=== PATIENT | male | born 1960 | race Caucasian/White ===

== ENCOUNTER 2021-01-24 11:59 | Outpatient (REF) | payer OTHER, SELFPAY | END 2021-01-24 12:00 | disposition home or self-care (01) | LOC: HO.BBR 11:59 | PROVIDERS: Visit Provider Internal Medicine Hematology & Oncology | DX: D45 Polycythemia vera (principal) | CPT/HCPCS: 85014; 85018; 99195 ==

== ENCOUNTER 2021-01-31 12:42 | Outpatient (REF) | payer OTHER, SELFPAY | END 2021-01-31 12:43 | disposition home or self-care (01) | LOC: HO.BBR 12:42 | PROVIDERS: Visit Provider Internal Medicine Hematology & Oncology | DX: D45 Polycythemia vera (principal) | CPT/HCPCS: 85018; 99195 ==

== ENCOUNTER 2021-02-07 14:49 | Outpatient (REF) | payer OTHER, SELFPAY | END 2021-02-07 14:50 | disposition home or self-care (01) | LOC: HO.BBR 14:49 | PROVIDERS: Visit Provider Internal Medicine Hematology & Oncology | DX: D45 Polycythemia vera (principal) | CPT/HCPCS: 85014; 85018; 99195 ==

== ENCOUNTER 2021-02-14 12:55 | Outpatient (REF) | payer OTHER, SELFPAY | END 2021-02-14 12:56 | disposition home or self-care (01) | LOC: HO.BBR 12:55 | PROVIDERS: Visit Provider Internal Medicine Hematology & Oncology | DX: D45 Polycythemia vera (principal) | CPT/HCPCS: 85014; 85018; 99195 ==

== ENCOUNTER 2021-05-02 11:00 | Outpatient (REF) | payer OTHER, SELFPAY | END 2021-05-02 11:01 | disposition home or self-care (01) | LOC: HO.BBR 11:00 | PROVIDERS: Visit Provider Internal Medicine Hematology & Oncology | DX: D45 Polycythemia vera (principal) | CPT/HCPCS: 85014; 85018; 99195 ==

== ENCOUNTER 2021-05-09 08:07 | Outpatient (REF) | payer OTHER, SELFPAY | END 2021-05-09 08:08 | disposition home or self-care (01) | LOC: HO.BBR 08:07 | PROVIDERS: Visit Provider Internal Medicine Hematology & Oncology | DX: D45 Polycythemia vera (principal) | CPT/HCPCS: 85014; 85018; 99195 ==

== ENCOUNTER 2021-05-16 09:55 | Outpatient (REF) | payer OTHER, SELFPAY | END 2021-05-16 09:56 | disposition home or self-care (01) | LOC: HO.BBR 09:55 | PROVIDERS: Visit Provider Internal Medicine Hematology & Oncology | DX: D45 Polycythemia vera (principal) | CPT/HCPCS: 85014; 85018; 99195 ==

== ENCOUNTER 2021-05-23 11:02 | Outpatient (REF) | payer OTHER, SELFPAY | END 2021-05-23 11:03 | disposition home or self-care (01) | LOC: HO.BBR 11:02 | PROVIDERS: Visit Provider Internal Medicine Hematology & Oncology | DX: D45 Polycythemia vera (principal) | CPT/HCPCS: 85018; 99195 ==

== ENCOUNTER 2021-05-30 10:06 | Outpatient (REF) | payer OTHER, SELFPAY | END 2021-05-30 10:07 | disposition home or self-care (01) | LOC: HO.BBR 10:06 | PROVIDERS: Visit Provider Internal Medicine Hematology & Oncology | DX: D45 Polycythemia vera (principal) | CPT/HCPCS: 85018; 99195 ==

== ENCOUNTER 2021-06-07 09:59 | Outpatient (REF) | payer OTHER, SELFPAY | END 2021-06-07 10:00 | disposition home or self-care (01) | LOC: HO.BBR 09:59 | PROVIDERS: Visit Provider Internal Medicine Hematology & Oncology | DX: D45 Polycythemia vera (principal) | CPT/HCPCS: 85018 ==

== ENCOUNTER 2021-12-20 15:05 | Outpatient (REF) | payer OTHER, SELFPAY | END 2021-12-20 15:06 | disposition home or self-care (01) | LOC: HO.BBR 15:05 | PROVIDERS: Visit Provider Internal Medicine Hematology & Oncology | DX: D45 Polycythemia vera (principal) | CPT/HCPCS: 85014; 85018; 99195 ==

== ENCOUNTER 2022-01-04 15:00 | Outpatient (REF) | payer OTHER, SELFPAY | END 2022-01-04 15:01 | disposition home or self-care (01) | LOC: HO.BBR 15:00 | PROVIDERS: Visit Provider Internal Medicine Hematology & Oncology | DX: D45 Polycythemia vera (principal) | CPT/HCPCS: 85014; 85018; 99195 ==

== ENCOUNTER 2022-01-18 15:09 | Outpatient (REF) | payer OTHER, SELFPAY | END 2022-01-18 15:10 | disposition home or self-care (01) | LOC: HO.BBR 15:09 | PROVIDERS: Visit Provider Internal Medicine Hematology & Oncology | DX: D45 Polycythemia vera (principal) | CPT/HCPCS: 85018; 99195 ==

== ENCOUNTER 2022-02-01 15:00 | Outpatient (REF) | payer OTHER, SELFPAY | END 2022-02-01 15:01 | disposition home or self-care (01) | LOC: HO.BBR 15:00 | PROVIDERS: Visit Provider Internal Medicine Hematology & Oncology | DX: D45 Polycythemia vera (principal) | CPT/HCPCS: 85018; 99195 ==

== ENCOUNTER 2022-03-09 14:47 | Outpatient (REF) | payer OTHER, SELFPAY | END 2022-03-09 14:48 | disposition home or self-care (01) | LOC: HO.BBR 14:47 | PROVIDERS: PCP Internal Medicine; Visit Provider Internal Medicine Hematology & Oncology | DX: D45 Polycythemia vera (principal) | CPT/HCPCS: 85018; 99195 ==

== ENCOUNTER 2022-04-04 09:02 | Outpatient (REF) | payer OTHER, SELFPAY | END 2022-04-04 09:03 | disposition home or self-care (01) | LOC: HO.BBR 09:02 | PROVIDERS: Visit Provider Internal Medicine Hematology & Oncology | DX: D45 Polycythemia vera (principal) | CPT/HCPCS: 85014; 85018; 99195 ==

== ENCOUNTER 2022-06-01 09:06 | Outpatient (REF) | payer OTHER, SELFPAY | END 2022-06-01 09:07 | disposition home or self-care (01) | LOC: HO.BBR 09:06 | PROVIDERS: Visit Provider Internal Medicine Hematology & Oncology | DX: D45 Polycythemia vera (principal) | CPT/HCPCS: 85014; 85018; 99195 ==

== ENCOUNTER 2022-06-29 08:00 | Outpatient (REF) | payer OTHER, SELFPAY | END 2022-06-29 08:01 | disposition home or self-care (01) | LOC: HO.BBR 08:00 | PROVIDERS: Visit Provider Internal Medicine Hematology & Oncology | DX: D45 Polycythemia vera (principal) | CPT/HCPCS: 85018; 99195 ==

== ENCOUNTER 2022-07-25 07:59 | Outpatient (REF) | payer OTHER, SELFPAY | END 2022-07-25 08:00 | disposition home or self-care (01) | LOC: HO.BBR 07:59 | PROVIDERS: Visit Provider Internal Medicine Hematology & Oncology | DX: D45 Polycythemia vera (principal) | CPT/HCPCS: 85018; 99195 ==

== ENCOUNTER 2022-08-22 07:59 | Outpatient (REF) | payer OTHER, SELFPAY | END 2022-08-22 08:00 | disposition home or self-care (01) | LOC: HO.BBR 07:59 | PROVIDERS: Visit Provider Internal Medicine Hematology & Oncology | DX: D45 Polycythemia vera (principal) | CPT/HCPCS: 85014; 85018; 99195 ==

== ENCOUNTER 2022-10-03 08:07 | Outpatient (REF) | payer OTHER, SELFPAY | END 2022-10-03 08:08 | disposition home or self-care (01) | LOC: HO.BBR 08:07 | PROVIDERS: Visit Provider Internal Medicine Hematology & Oncology | DX: E83.110 Hereditary hemochromatosis (principal) | CPT/HCPCS: 85014; 85018; 99195 ==

== ENCOUNTER 2022-11-14 09:58 | Outpatient (REF) | payer OTHER, SELFPAY | END 2022-11-14 09:59 | disposition home or self-care (01) | LOC: HO.BBR 09:58 | PROVIDERS: PCP Internal Medicine; Visit Provider Internal Medicine Hematology & Oncology | DX: D45 Polycythemia vera (principal) | CPT/HCPCS: 85014; 85018; 99195 ==

== ENCOUNTER 2022-12-28 09:59 | Outpatient (REF) | payer OTHER, SELFPAY | END 2022-12-28 10:00 | disposition home or self-care (01) | LOC: HO.BBR 09:59 | PROVIDERS: PCP Internal Medicine; Visit Provider Internal Medicine Hematology & Oncology | DX: D45 Polycythemia vera (principal) | CPT/HCPCS: 85018; 99195 ==

== ENCOUNTER 2023-02-08 09:56 | Outpatient (REF) | payer OTHER, SELFPAY | END 2023-02-08 09:57 | disposition home or self-care (01) | LOC: HO.BBR 09:56 | PROVIDERS: PCP Internal Medicine; Visit Provider Internal Medicine Hematology & Oncology | DX: D45 Polycythemia vera (principal) | CPT/HCPCS: 85018; 99195 ==

== ENCOUNTER 2023-03-22 09:06 | Outpatient (REF) | payer OTHER, SELFPAY | END 2023-03-22 09:07 | disposition home or self-care (01) | LOC: HO.BBR 09:06 | PROVIDERS: PCP Internal Medicine; Visit Provider Internal Medicine Hematology & Oncology | DX: D45 Polycythemia vera (principal) | CPT/HCPCS: 85014; 85018; 99195 ==

== ENCOUNTER 2023-05-03 09:55 | Outpatient (REF) | payer OTHER, SELFPAY | END 2023-05-03 09:56 | disposition home or self-care (01) | LOC: HO.BBR 09:55 | PROVIDERS: PCP Internal Medicine; Visit Provider Internal Medicine Hematology & Oncology | DX: D45 Polycythemia vera (principal) | CPT/HCPCS: 85014; 85018; 99195 ==

== ENCOUNTER 2023-06-19 10:04 | Outpatient (REF) | payer OTHER, SELFPAY | END 2023-06-19 10:05 | disposition home or self-care (01) | LOC: HO.BBR 10:04 | PROVIDERS: PCP Internal Medicine; Visit Provider Internal Medicine Hematology & Oncology | DX: D45 Polycythemia vera (principal) | CPT/HCPCS: 85018; 99195 ==

== ENCOUNTER 2025-02-26 12:53 | Outpatient (REF) | payer OTHER, SELFPAY ==
--- OUTSIDE RECORDS SUMMARY | 2025-02-26 12:56 | XMS_ITS | Clinical Summary ---
Author Organization [facility] Prior to 08/01/24 Address [address] [place] [address] Care Team Providers Care Cartridge Loader Name Role Phone Karen Bowie MD Primary Care Provider [phone] Allergies No known active allergies Medications Medication Sig Dispensed Refills Start Date End Date Status hydroxyurea (HYDREA) 500 MG capsule TAKE 1 CAPSULE (500 MG TOTAL) BY MOUTH DAILY 90 capsule 3 05/01/2023 Active apixaban (ELIQUIS) 5 MG TABS tablet Take 1 tablet (5 mg total) by mouth every 12 (twelve) hours. 0 Active amiodarone (PACERONE) 200 MG tablet Take 1 tablet (200 mg total) by mouth daily. 0 Active omeprazole (PriLOSEC) 40 MG capsule Take 1 capsule (40 mg total) by mouth daily. 0 Active Aspirin Low Dose 81 MG EC tablet TAKE 1 TABLET BY MOUTH EVERY DAY 90 tablet 3 09/23/2023 Active Active Problems Problem Noted Date Diagnosed Date Erythrocytosis 01/12/2021 Social History Tobacco Use Types Packs/Day Years Used Date Smoking Tobacco: Never Assessed Sex and Gender Information Value Date Recorded Sex Assigned at Not on file Gender Identity Not on file Sexual Orientation Not on file Job Start Date Occupation Industry Not on file Not on file Not on file Last Filed Vital Signs Vital Sign Reading Time Taken Comments Blood Pressure 155/65 11/08/2023 10:13 AM EDT Pulse 65 11/08/2023 10:13 AM EDT Temperature 36.7 C (98 F) 11/08/2023 10:13 AM EDT Respiratory Rate - - Oxygen Saturation 100% 11/08/2023 10:13 AM EDT Inhaled Oxygen Concentration - - Weight 86.2 kg (190 lb) 11/08/2023 10:13 AM EDT Height 174.2 cm (5' 8.6 ) 11/08/2023 10:13 AM ED T Body Mass Index 28.39 11/08/2023 10:13 AM EDT Plan of Treatment Health Maintenance Due Date Last Done Comments Hepatitis C Screening 1958 Depression Screening 1970 BMI Counseling 1976 Preventative Health Evaluation 1976 DTap / Tdap / Td (1 - Tdap) 1977 Colon Cancer Screening (Colonoscopy) 11/10/2003 Shingrix-Zoster Vaccine (1 o f 2) 2008 Fall Risk Assessment 11/10/2023 Pneumococcal Vaccine (1 of 1 - PCV) 11/10/2023 COVID-19 Vaccine (3 - 2024-2 6 season) 2024 08/16/2020, 07/26/2020 Influenza Vaccine (#1) 2024 RSV Adult > 60+ Yrs or (1 - 1-dose 75+ series) 2033 Hepatitis B Vaccines Aged Out No long er eligible based on patient's age to complete this topic RSV Ped < 20 months Aged Out No longe r eligible based on patient's age to complete this topic Care Teams Cartridge Loader Relationship Specialty Start Date End Date Karen Bowie MD [address] [place] [address] PCP - General Internal Medicine 08/16/23
--- OUTSIDE RECORDS SUMMARY | 2025-02-26 12:56 | XMS_ITS | Clinical Summary ---
Author Organization [facility] Address [address] [place] [address] Phone Care Team Providers Care Activities Officer Name Role Phone Karen Bowie MD Primary Care Provider [phone] Allergies Active Allergy Reactions Criticality Noted Date Comments Bee Venom Protein (Honey Bee) 09/22/2020 Other 01/17/2024 Bee stings only as a child denies any reaction as adult Medications omeprazole (PriLOSEC) [address] capsule TAKE 1 CAPSULE BY MOUTH DAILY FOR 360 DAYS. 90 capsule 3 05/15/19 25 Active atorvastatin (LIPITOR) 10 mg tablet TAKE 1 TABLET BY MOUTH EVERY DAY 90 tablet 05/15/19 25 Active Additional Information Patient not taking.Reported on 02/12/2025 omeprazole (PriLOSEC) [address] capsule Take 1 capsule (40 mg total) by mouth 1 (one) time each day. 90 capsule 2 05/15/19 25 Active hydroxyurea (HYDREA) 500 mg capsule Take 1 pill twice daily on Saturday, Saturday, and Saturday, take 1 pill daily on other 4 days 128 capsule 3 11/14/19 25 Active aspirin 81 mg EC tablet TAKE 1 TABLET BY MOUTH 1 TIME EACH DAY. 90 tablet 3 02/11/20 25 Active aspirin 81 mg EC tablet Take 1 tablet (81 mg total) by mouth 1 (one) time each day. 90 each 3 01/22/20 24 025 Discontinued Active Problems Problem Noted Date Diagnosed Date Polycythemia vera 02/07/2024 Gastroesophageal reflux disease without esophagi tis 01/17/2024 Erythrocytosis 01/12/2021 Encounters Date Type Department Care Team Description 02/12/2025 9:45 AM EST Office Visit [facility] Hematology Oncology [address] [place] [address] Ketan Traore MD Polycythemia vera ([facility]/HCC V24, [facility] V28) (Primary Dx) 02/09/2025 1:30 PM EST Lab Draw Station - [address] [address] Erythrocytosis (Primary Dx); Polycythemia vera (CMS/HCC V24, CMS/HCC V28) from Last 3 Months Social History Tobacco Use Types Packs/Day Years Used Date Smoking Tobacco: Never Passive Smoke Exposure: Never Smokeless Tobacco: Never Tobacco Cessation:Counseling Given: Not Answered Alcohol Use Standard Drinks/Week Comments Yes 0 (1 standard drink = 0.6 oz pur e alcohol) social Sex and Gender Information Value Date Recorded Sex Assigned at Not on file Legal Sex Male 9:09 PM EST Gender Identity Not on file Sexual Orientation Not on file Last Filed Vital Signs Vital Sign Reading Time Taken Comments Blood Pressure 164/79 02/12/2025 9:50 AM EST Pulse 67 02/12/2025 9:50 AM EST Temperature 36.4 C (97.5 F) 02/12/2025 9:50 AM EST Respiratory Rate 14 01/17/2024 1:15 PM EST Oxygen Saturation 97% 02/12/2025 9:50 AM EST Inhaled Oxygen Concentration - - Weight 87.5 kg (193 lb) 02/12/2025 9:50 AM EST Height 175.3 cm (5' 9 ) 01/17/2024 1:15 PM EST Body Mass Index 28.5 01/17/2024 1:15 PM EST Plan of Treatment Upcoming Encounters Date Type Department Care Team (Late st Contact Info) Description 03/26/2025 10:15 AM EST Office Visit [facility] Hematology Oncology [address] [place] [phone] Ketan Traore MD [address] [place] [address] Health Maintenance Due Date Last Done Comments Colorectal Cancer Screening: Colonoscopy 1958 DTaP,Tdap,and Td Vaccines (1 - Tdap) 1977 Zoster Vaccines (1 of 2) 1977 Pneumococcal Vaccine: 50+ Years (1 of 1 - PCV) 2008 RSV Immunization Adult Patients (1 - Risk 50-74 years 1-dose series) 2008 COVID-19 Vaccine (3 - Pfizer risk series) 09/13/2020 08/16/2020, 07/26/2020 Hepatitis C Screening 02/09/2022 Medicare Annual Wellness Visit 02/09/2022 Social Influencers of Health Screening 02/09/2022 Falls Risk Assessment 11/10/2023 Depression Screening 03/04/2024 Influenza Vaccine (#1) 2024 Cholesterol Screening (Lipid Panel) 02/02/2029 02/03/2024 HIB Vaccines Aged Out No longer eligi ble based on patient's age to complete this topic HPV Vaccines Aged Out No longer eligi ble based on patient's age to complete this topic Hepatitis A Vaccines Aged Out No long er eligible based on patient's age to complete this topic Hepatitis B Vaccines Aged Out No long er eligible based on patient's age to complete this topic IPV Vaccines Aged Out No longer eligi ble based on patient's age to complete this topic MMR Vaccines Aged Out No longer eligi ble based on patient's age to complete this topic Meningococcal ACWY Vaccine Aged Out N o longer eligible based on patient's age to complete this topic Meningococcal B Vaccine Aged Out No l onger eligible based on patient's age to complete this topic RSV Immunization Patients Under 20 months Aged Out No longer eligible b ased on patient's age to complete this topic Varicella Vaccines Aged Out No longer eligible based on patient's age to complete this topic Procedures Procedure Name Priority Date/Time Associated Diagnosis Comments CBC WITH AUTO DIFFERENTIAL Routine 02/09/2025 1:28 PM EST Erythrocytosis Polycythemia vera ([facility]/HCC V24, [facility] V28) IRON AND TIBC Routine 02/09/2025 1:28 PM EST Erythrocytosis Polycythemia vera (CMS/HCC V24, CMS/HCC V28) FERRITIN Routine 02/09/2025 1:28 PM EST Erythrocytosis Polycythemia vera ([facility]/HCC V24, CMS/HCC V28) CBC AND DIFFERENTIAL Routine 02/09/2025 1:28 PM EST Erythrocytosis Polycythemia vera ([facility]/HCC V24, CMS/HCC V28) LIPID PANEL WITH REFLEX TO DIRECT LDL Routine 02/03/2024 3:03 PM EST Mixed hyperlipidemia from Last 3 Months or Most Recently Relevant to Health Maintenance Results * (ABNORMAL) CBC auto differential (02/09/2025 1:28 PM EST) [facility] Signature WBC 11.6(H) 4.8 - 10.8 K/mcL LAB HEMETOLOGY METHOD 02/09/2025 1:40 PM [facility] LAB RBC 5.80(H) 4.50 - 5.50 M/mcL LAB HEMETOLOGY METHOD 02/09/2025 1:40 PM [facility] LAB Hemoglobin 18.2(H) 13.5 - 17.5 g/dL LAB HEMETOLOGY METHOD 02/09/2025 1:40 PM [facility] LAB Hematocrit 54.9(H) 42.0 - 54.0 % LAB HEMETOLOGY METHOD 02/09/2025 1:40 PM [facility] LAB MCV 94.3 79.0 - 98.0 FL LAB HEMETOLOGY METHOD 02/09/2025 1:40 PM [facility] LAB MCH 31.3 27.0 - 32.0 pcg LAB HEMETOLOGY METHOD 02/09/2025 1:40 PM [facility] LAB MCHC 33.2 32.0 - 37.0 g/dL LAB HEMETOLOGY METHOD 02/09/2025 1:40 PM [facility] LAB RDW 15.4(H) 11.0 - 15.0 % LAB HEMETOLOGY METHOD 02/09/2025 1:40 PM [facility] LAB Platelets 239 130 - 400 K/mcL LAB HEMETOLOGY METHOD 02/09/2025 1:40 PM [facility] LAB MPV 9.9 7.0 - 11.0 FL LAB HEMETOLOGY METHOD 02/09/2025 1:40 PM [facility] LAB NRBC 0.0 <1.0 % LAB HEMETOLOGY METHOD 02/09/2025 1:40 PM [facility] LAB NRBC Absolute 0.00 <0.10 K/mcL LAB HEMETOLOGY METHOD 02/09/2025 1:40 PM [facility] LAB Neutrophils Relative 70.9 % LAB HEMETOLOGY METHOD 02/09/2025 1:40 PM [facility] LAB Lymphocytes Relative 18.0 % LAB HEMETOLOGY METHOD 02/09/2025 1:40 PM [facility] LAB Monocytes Relative 10.0 % LAB HEMETOLOGY METHOD 02/09/2025 1:40 PM [facility] LAB Eosinophils Relative 0.5 % LAB HEMETOLOGY METHOD 02/09/2025 1:40 PM [facility] LAB Basophils Relative 0.3 % LAB HEMETOLOGY METHOD 02/09/2025 1:40 PM [facility] LAB Immature Granulocytes Relative 0.3 % LAB HEMETOLOGY METHOD 02/09/2025 1:40 PM [facility] LAB Neutrophils Absolute 8.23(H) 1.50 - 7.00 K/mcL LAB HEMETOLOGY METHOD 02/09/2025 1:40 PM [facility] LAB Lymphocytes Absolute 2.09 1.00 - 5.00 K/mcL LAB HEMETOLOGY METHOD 02/09/2025 1:40 PM [facility] LAB Monocytes Absolute 1.16(H) 0.20 - 1.00 K/mcL LAB HEMETOLOGY METHOD 02/09/2025 1:40 PM [facility] LAB Eosinophils Absolute 0.06 0.00 - 0.50 K/mcL LAB HEMETOLOGY METHOD 02/09/2025 1:40 PM EST [facility] LAB Basophils Absolute 0.04 0.00 - 0.20 K/[facility] LAB HEMETOLOGY METHOD 02/09/2025 1:40 PM EST [facility] LAB Immature Granulocytes Absolute 0.04(H) 0.00 - 0.03 K/[facility] LAB HEMETOLOGY METHOD 02/09/2025 1:40 PM [facility] LAB Blood Venous blood specimen / Unknown Venipuncture / Unknown 02/09/2025 1:28 PM EST 02/09/2025 1:34 PM EST us Ketan Traore MD LAB BLOOD ORDERABLES Final Result Performing Organization Address [facility]/ZIP Co de Phone Number [facility] [address] [place] [address], [place] [phone] * (ABNORMAL) Iron and TIBC (02/09/2025 1:28 PM EST) Iron 66 50 - 160 mcg/dL 02/09/2025 2:13 PM [facility] TIBC 384 250 - 450 mcg/dL 02/09/2025 2:13 PM [facility] Iron Saturation 17(L) 20 - 50 % 2:13 PM [facility] LAB Blood Venous blood specimen / Unknown Venipuncture / Unknown 02/09/2025 1:28 PM EST 02/09/2025 1:34 PM EST us Ketan Traore MD LAB BLOOD ORDERABLES Final Result Performing Organization Address City/[facility]/ZIP Co de Phone Number [facility] [address] [place] [address], [place] [phone] * Ferritin (02/09/2025 1:28 PM EST) Ferritin 21 11 - 307 ng/mL 02/09/2025 2:14 PM EST [facility] Blood Venous blood specimen / Unknown Venipuncture / Unknown 02/09/2025 1:28 PM EST 02/09/2025 1:34 PM EST us Ketan Traore MD LAB BLOOD ORDERABLES Final Result [facility] [address] [place] [address], [place] [phone] * Lipid panel with reflex to direct LDL (02/03/2024 3:03 PM EST) [facility] Cholesterol 130 0 - 200 mg/dL LAB CHEMISTRY METHOD 02/03/2024 5:12 PM [facility] Triglycerides 104 0 - 150 mg/dL LAB CHEMISTRY METHOD 02/03/2024 5:12 PM [facility] LAB HDL 65 >=40 mg/dL LAB CHEMISTRY METHOD 02/03/2024 5:12 PM [facility] LDL Calculated 44 0 - 100 mg/dL LAB CHEMISTRY METHOD 02/03/2024 5:12 PM [facility] LAB VLDL Cholesterol Brendon 20.8 mg/dL LAB CHEMISTRY METHOD 02/03/2024 5:12 PM [facility] LAB Non HDL Chol. (LDL+VLDL) 65 <145 mg/dL LAB CHEMISTRY METHOD 02/03/2024 5:12 PM [facility] LAB Chol/HDL Ratio 2.0 0.0 - 4.4 LAB CHEMISTRY METHOD 02/03/2024 5:12 PM [facility] LAB Blood Venous blood specimen / Unknown Venipuncture / Unknown 02/03/2024 3:03 PM EST 02/03/2024 4:39 PM EST us Karen Bowie MD LAB BLOOD ORDERABLES Final Resul t [place] ([facility]) HOSP[facility] LAB [address] [place] [address], from Last 3 Months or Most Recently Relevant to Health Maintenance Insurance [employer] Care Teams Activities Officer Relationship Specialty Start Date End Date Karen Bowie MD [address] [place] [address] PCP - General Internal Medicine 01/10/24
== END 2025-02-26 12:54 | disposition home or self-care (01) ==
LOC: HO.BBR 12:53
PROVIDERS: PCP Internal Medicine; Visit Provider Internal Medicine Hematology & Oncology
DX: D75.1 Secondary polycythemia (principal)
CPT/HCPCS: 85018; 99195